=== PATIENT | female | born 2005 | race Caucasian/White ===

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

== ENCOUNTER → 2024-01-13 | Outpatient (CLI) | payer OTHER ==
--- NOTE | 2024-01-13 14:43 | P.PN ---
Subjective Progress Note Date: 01/13/24 Principal diagnosis: bilateral breast lumps Zenia is a 18 year old female seen for Olive Bell with a complaint of bilateral breast nodules. She had a bilateral ultrasound on 12-13-23 which showed a 12 mm lesion in the left breast. No lesions were seen in the right b reast. The nodules have been present in both breast for approximately 3 months. They are located in the upper portion of each breast. The right breast is tender but the left breast does not hurt. The tenderness is worse at the time of her menstrual period. They have not changed in size. She is not complaining of any recent trauma or infection in the breast. Nipple discharge on the left side for agout three months ago. It is white in nature. It occurs spontaneously. She is not sure if there is ever been any blood in it. She has had two pregnancies, her last baby was born in 2020. She did not breast feed. She does not have change in size of her breast nor in any nipple discharge nor in pain at the time of her menstrual cycle. Caffeine: occasional nicotine: vapes several times a day chocolate: occasional BCP: to regulate period not use them now hormones: none Family history: Paternal grandmother: Breast cancer Hormonal history: Menarche: 9 , breast feed: no, age at first : 13 periods regular, LMP: now Past surgical history: tonsil and adenoids Medical HIstory: celiac disease Nicotine: Vapes several times a day Alcohol: Negative Drugs: Negative Systems: Systemic: Negative fever or night sweats Heart: Negative Lungs: Negative GI: Celiac disease : Negative Musculoskeletal: negative Psychiatric: anxiety Allergies: Bactrim, Zofran, seasonal allergies Objective - Constitutional General appearance: Present: cooperative - EENT Eyes: Present: EOMI ENT: Present: hearing grossly normal - Neck Neck: Present: normal ROM - Respiratory Respiratory: bilateral: CTA - Cardiovascular Rhythm: regular Heart sounds: normal: S1, S2 - Gastrointestinal General gastrointestinal: Present: soft - Integumentary Integumentary Comment(s): multiple tattoos Integumentary: Present: normal turgor - Musculoskeletal Musculoskeletal: Present: gait normal - Psychiatric Psychiatric: Present: A&O x's 3, appropriate affect, intact judgment & insight - Additional findings Additional findings: Breast Exam: 32AAA Inspection: Bilateral grade 2 ptosis Palpation: Right breast: Multi positional exam breast parenchyma in the 12 o'clock position but no discrete dominant masses or nodules Right axilla: No adenopathy of concern Left breast: Multi positional exam parenchyma in the 12 o'clock position but no discrete dominant nodule No nipple discharge on today's examination Assessment and Plan Assessment: Impression: Ultrasound revealing a wider than tall 12 mm lesion in the left breast at the 12 o'clock position, this appears to be in the same location where there is breast parenchyma present and radiographically may represent a lymph node No nipple discharge on today's exam Nothing of concern in the right breast radiographically and on examination no discrete masses palpable Plan: Would consider bilateral breast MRI At this time there is no bloody nipple discharge and we have discussed galactogram but there is no discrete duct from which the discharge is coming Follow-up after breast MRI If unable to get a breast MRI bilateral breast ultrasound in 6 months with examination at that time Patient to follow-up sooner any bloody nipple discharge or any changes for which she is concerned CC: Dr. Bell
[2024-01-13 15:03] VITALS: BP 106/71; PULSE 105; RESP 17; TEMP 97.8
== END ==
LOC: WWCWWP 13:38
PROVIDERS: ATTEND Surgery
DX: R92.8 Other abnormal and inconclusive findings on diagnostic imaging of breast (principal); N63.20 Unspecified lump in the left breast, unspecified quadrant; N63.10 Unspecified lump in the right breast, unspecified quadrant; F17.290 Nicotine dependence, other tobacco product, uncomplicated; Z80.3 Family history of malignant neoplasm of breast; Z88.1 Allergy status to other antibiotic agents; Z88.8 Allergy status to other drugs, medicaments and biological substances; Z88.2 Allergy status to sulfonamides; Z91.09 Other allergy status, other than to drugs and biological substances